=== PATIENT | female | born 1945 | race Caucasian/White ===

== ENCOUNTER 2018-09-16 10:51 | Emergency (ER) | payer MEDICARE, OTHER ==
[~2018-09-16] VITALS: Ht 160 cm; Wt 50.5 kg
[~2018-09-16 10:51] MED LIST: ASPI-1071 PO; HYDR-4383 PO; HYDR25TA4 PO; LEVO75TA7; PANT-47 PO; ROSU40TA PO; TEMA15CA5 PO; [UNRECOGNIZED DRUG - MIXTURE]
[2018-09-16 11:29] LABS: BASOPHILS # (AUTO) 0.1 X10'3 (0-0.2); BASOPHILS % (AUTO) 1.2 % (0-1); EOSINOPHILS # (AUTO) 0.1 X10'3 (0-0.9); EOSINOPHILS % (AUTO) 1.6 % (0-6); HEMATOCRIT 42.6 % (35.0-45.0); HEMOGLOBIN 14.1 g/dl (12.0-16.0); LYMPHOCYTES # (AUTO) 3.6 X10'3 (1.1-4.8); LYMPHOCYTES % (AUTO) 46.4 % (21-51); MEAN CORPUSCULAR HEMOGLOBIN 29.5 PG (27.0-31.0); MEAN CORPUSCULAR HGB CONC 33.2 g/dL (33.0-36.5); MEAN PLATELET VOLUME 9.3 FL (7.4-10.4); MONOCYTES % (AUTO) 12.1 % (2-12); NEUTROPHILS % (AUTO) 38.7 % (42-75); PLATELET COUNT 327 X10'3 (140-440); RED BLOOD COUNT 4.79 X10'6 (4.20-5.60); RED CELL DISTRIBUTION WIDTH 14.5 % (11.5-14.5); WHITE BLOOD COUNT 7.9 X10'3 (4.5-11.0)
[2018-09-16 11:54] LABS: ALANINE AMINOTRANSFERASE 23 U/L (12-78); ALBUMIN 4.2 G/DL (3.4-5.0); ALBUMIN/GLOBULIN RATIO 1.1 (1.1-1.5); ALKALINE PHOSPHATASE 72 IU/L (46-116); ANION GAP 8 (8-16); ASPARTATE AMINO TRANSFERASE 19 U/L (10-37); BILIRUBIN,TOTAL 0.4 MG/DL (0.1-1.0); BLOOD UREA NITROGEN 8 MG/DL (7-18); BUN/CREATININE RATIO 10.8 (6.6-38.0); CALCIUM 9.3 MG/DL (8.5-10.1); CHLORIDE 100 MMOL/L (99-107); CREATININE 0.74 MG/DL (0.40-0.90); GLUCOSE 97 MG/DL (70-104); POTASSIUM 3.2 MMOL/L (3.5-5.1); SODIUM 137 MMOL/L (135-145); TOTAL CARBON DIOXIDE 29.2 MMOL/L (24-32); TOTAL PROTEIN 7.9 G/DL (6.4-8.2); eGFR 77 ML/MIN
[2018-09-16] MEDS ORDERED: proCHLORperazine 10 MG/2 ml inj IV ONE (12:10)
[2018-09-16] MEDS ORDERED: fentaNYL/PF 50MCG/1 ML 2ML syringe IV ONE (12:10)
[2018-09-16] MEDS ORDERED: normal saline 1000ml 1,000 ML IV ONE (12:10)
[2018-09-16] MEDS ORDERED: ondansetron/PF 4mg/2ml inj IV ONE (12:10)
[2018-09-16 12:38] LABS: CLARITY,URINE SLIGHTLY CLOUDY (Clear); COLOR,URINE YELLOW (Yellow); GLUCOSE, URINE NEGATIVE (Neg); KETONES,URINE NEGATIVE (Neg); LEUKOCYTE ESTERASE ,URINE MODERATE (Neg); NITRITES, URINE NEGATIVE (Neg); OCCULT BLOOD,URINE NEGATIVE (Neg); PROTEIN,URINE NEGATIVE (Neg); UROBILINOGEN,URINE 0.2 E.U/dL (0.2-1.0)
[2018-09-16 12:40] LABS: UA COLLECTION TYPE CLN CATCH MIDSTREAM
[2018-09-16 12:45] LABS: TRIPLE PHOSPHATE CRYST 1+ /HPF (NEGATIVE)
[2018-09-16 12:52] LABS: AMORPHOUS PHOSPHATES 1+; SQUAMOUS EPITHELIAL CELL,UR FEW /LPF (FEW); WBC CLUMPS,URINE FEW /HPF (NEGATIVE); WBC,URINE 50-100 /HPF (0-4)
[2018-09-16 12:53] LABS: BACTERIA,URINE 1+ /HPF (Neg)
[2018-09-16 12:54] LABS: RBC,URINE 0-2 /HPF (0-2)
[2018-09-16] MEDS ORDERED: CIPR-230 PO (13:09)
[2018-09-16] MEDS ORDERED: CefTRIAXone/D5W-Rocephin 1gm 50 ML IV ONE (13:10)
[2018-09-16] MEDS ORDERED: famotidine/PF 10 mg/ml inj IV ONE (13:15)
[2018-09-16] MEDS ORDERED: NITR100C6 PO (15:16)
[2018-09-16] MEDS ORDERED: PROC5TAB56 PO (15:17)
[2018-09-16 15:26] VITALS: BP 125/67
== END 2018-09-16 15:14 | disposition home or self-care (01) ==
LOC: ER 10:52
DX: N39.0 Urinary tract infection, site not specified (principal); R10.84 Generalized abdominal pain; R11.10 Vomiting, unspecified; I10 Essential (primary) hypertension; Z98.890 Other specified postprocedural states; Z90.49 Acquired absence of other specified parts of digestive tract; Z90.710 Acquired absence of both cervix and uterus; Z88.5 Allergy status to narcotic agent; Z79.82 Long term (current) use of aspirin; Z79.899 Other long term (current) drug therapy
CPT/HCPCS: 36415; 74176; 80053; 81001; 83605; 84484; 85025; 85610; 87088; 93005; 96365; 96366; 96375; 99284; J0696; J0780; J2405; J3010; J3490; J7030

== ENCOUNTER 2019-01-22 18:13 | Inpatient (IN) | payer MEDICARE, OTHER ==
[~2019-01-22] VITALS: Ht 160 cm; Wt 50.5 kg
[~2019-01-22 18:13] MED LIST changes: +NITR100C6 PO; +PROC5TAB56 PO
[2019-01-22] MEDS ORDERED: morphine 4 MG/ML inj SYRINge IV ONE ×2 (18:45→19:40)
[2019-01-22] MEDS ORDERED: normal saline 1000ml 1,000 ML IV ONE (18:45)
[2019-01-22] MEDS ORDERED: ondansetron/PF 4mg/2ml inj IV ONE (18:45)
[2019-01-22 19:09] LABS: BASOPHILS # (AUTO) 0.2 X10'3 (0-0.2); BASOPHILS % (AUTO) 1.2 % (0-1); EOSINOPHILS # (AUTO) 0.1 X10'3 (0-0.9); EOSINOPHILS % (AUTO) 0.6 % (0-6); HEMATOCRIT 42.1 % (35.0-45.0); HEMOGLOBIN 14.2 g/dl (12.0-16.0); LYMPHOCYTES # (AUTO) 4.8 X10'3 (1.1-4.8); LYMPHOCYTES % (AUTO) 34.1 % (21-51); MEAN CORPUSCULAR HEMOGLOBIN 29.5 PG (27.0-31.0); MEAN CORPUSCULAR HGB CONC 33.8 g/dL (33.0-36.5); MEAN CORPUSCULAR VOLUME 87.2 FL (78-98); MEAN PLATELET VOLUME 9.5 FL (7.4-10.4); MONOCYTES # (AUTO) 1.1 X10'3 (0-0.9); MONOCYTES % (AUTO) 7.8 % (2-12); NEUTROPHILS % (AUTO) 56.3 % (42-75); PLATELET COUNT 332 X10'3 (140-440); RED BLOOD COUNT 4.83 X10'6 (4.20-5.60); RED CELL DISTRIBUTION WIDTH 14.5 % (11.5-14.5); WHITE BLOOD COUNT 14.1 X10'3 (4.5-11.0)
[2019-01-22 19:20] LABS: ALANINE AMINOTRANSFERASE 21 U/L (12-78); ALBUMIN 4.3 G/DL (3.4-5.0); ALBUMIN/GLOBULIN RATIO 1.1 (1.1-1.5); ALKALINE PHOSPHATASE 83 IU/L (46-116); ANION GAP 11 (8-16); ASPARTATE AMINO TRANSFERASE 20 U/L (10-37); BILIRUBIN,TOTAL 0.2 MG/DL (0.1-1.0); BLOOD UREA NITROGEN 14 MG/DL (7-18); BUN/CREATININE RATIO 15.6 (6.6-38.0); CALCIUM 9.7 MG/DL (8.5-10.1); CHLORIDE 102 MMOL/L (99-107); GLUCOSE 114 MG/DL (70-104); LIPASE 136 U/L (73-393); POTASSIUM 3.6 MMOL/L (3.5-5.1); SODIUM 142 MMOL/L (135-145); TOTAL CARBON DIOXIDE 28.7 MMOL/L (24-32); TOTAL PROTEIN 8.1 G/DL (6.4-8.2); eGFR 62 ML/MIN
[2019-01-22] MEDS ORDERED: proCHLORperazine 10 MG/2 ml inj IV ONE (19:25)
[2019-01-22] MEDS ORDERED: MIDAZolam 5mg/ml 2ml vial IV ONE (20:20)
[2019-01-22] MEDS ORDERED: mag hydrox/Alum hydrox/simeth 30ml oral suspension PO PRN (20:45)
[2019-01-22] MEDS ORDERED: magnesium 4gm in 100ml NS 100 ML IV PRN (20:45)
[2019-01-22] MEDS ORDERED: morphine 2 MG/ML inj. syringe IV PRN ×2 (20:45)
[2019-01-22] MEDS ORDERED: acetaminophen 325mg tablet PO PRN ×2 (20:45)
[2019-01-22] MEDS ORDERED: magnesium hydroxide 30ml (MOM) UD suspension PO PRN (20:45)
[2019-01-22] MEDS ORDERED: magnesium Cl slow-release 64mg tablet PO PRN (20:45)
[2019-01-22] MEDS ORDERED: potassium Cl 20 mEq SR tablet PO PRN ×2 (20:45)
[2019-01-22] MEDS ORDERED: magnesium 2GM in 50ml NS 50 ML IV PRN (20:45)
[2019-01-22] MEDS ORDERED: potassium CL 10mEq/100ml bag 100 ML IV PRN (20:45)
[2019-01-22 20:58] LABS: CLARITY,URINE CLEAR (Clear); COLOR,URINE YELLOW (Yellow); GLUCOSE, URINE NEGATIVE (Neg); KETONES,URINE NEGATIVE (Neg); LEUKOCYTE ESTERASE ,URINE SMALL (Neg); NITRITES, URINE NEGATIVE (Neg); OCCULT BLOOD,URINE NEGATIVE (Neg); PH,URINE 8.5 (4.8-8.0); PROTEIN,URINE NEGATIVE (Neg); UROBILINOGEN,URINE 0.2 E.U/dL (0.2-1.0)
[2019-01-22 21:08] LABS: UA COLLECTION TYPE CLN CATCH MIDSTREAM
[2019-01-22 21:09] LABS: WBC,URINE 0-4 /HPF (0-4)
[2019-01-22 21:10] LABS: BACTERIA,URINE NONE SEEN /HPF (Neg); RBC,URINE NONE SEEN /HPF (0-2); SQUAMOUS EPITHELIAL CELL,UR FEW /LPF (FEW)
--- NOTE | 2019-01-22 21:12 | NUR ---
Patient in room ED 11. I have received report from ED RN and had the opportunity to ask questions and will assume patient care when pt arrives to unit
[2019-01-22] MEDS: normal saline 1000ml 1,000 ML IV SCH (21:16)
--- NOTE | 2019-01-22 21:20 | NUR ---
Pt brought up by ED via wheelchair. Pt was able to ambulate to her bed. VSS
[2019-01-22 21:30] VITALS: BP 125/59
[2019-01-22] MEDS: ondansetron/PF 4mg/2ml inj IV PRN (22:43)
[2019-01-23] VITALS (17 sets, daily range): BP systolic 105–153; BP diastolic 50–76
[2019-01-23] MEDS ORDERED: hydrALAZINE 20mg/ml inj. IV PRN (01:55)
[2019-01-23] MEDS: ondansetron/PF 4mg/2ml inj IV PRN ×2 (04:40→15:26)
[2019-01-23] MEDS: normal saline 1000ml 1,000 ML IV SCH ×2 (04:44→17:09)
[2019-01-23 06:05] LABS: ALBUMIN 3.2 G/DL (3.4-5.0); ANION GAP 7 (8-16); BLOOD UREA NITROGEN 10 MG/DL (7-18); BUN/CREATININE RATIO 18.5 (6.6-38.0); CALCIUM 8.3 MG/DL (8.5-10.1); CHLORIDE 107 MMOL/L (99-107); CREATININE 0.54 MG/DL (0.40-0.90); GLUCOSE 117 MG/DL (70-104); MAGNESIUM 1.8 MG/DL (1.5-2.4); SODIUM 143 MMOL/L (135-145); TOTAL CARBON DIOXIDE 29.2 MMOL/L (24-32); eGFR > 90 ML/MIN
[2019-01-23 06:20] LABS: BASOPHILS # (AUTO) 0.1 X10'3 (0-0.2); BASOPHILS % (AUTO) 0.4 % (0-1); EOSINOPHILS % (AUTO) 0.1 % (0-6); HEMATOCRIT 36.5 % (35.0-45.0); HEMOGLOBIN 12.1 g/dl (12.0-16.0); LYMPHOCYTES # (AUTO) 1.4 X10'3 (1.1-4.8); LYMPHOCYTES % (AUTO) 9.4 % (21-51); MEAN CORPUSCULAR HEMOGLOBIN 29.7 PG (27.0-31.0); MEAN CORPUSCULAR HGB CONC 33.2 g/dL (33.0-36.5); MEAN CORPUSCULAR VOLUME 89.5 FL (78-98); MEAN PLATELET VOLUME 9.7 FL (7.4-10.4); MONOCYTES % (AUTO) 6.5 % (2-12); NEUTROPHILS # (AUTO) 12.2 X10'3 (1.8-7.7); NEUTROPHILS % (AUTO) 83.6 % (42-75); PLATELET COUNT 272 X10'3 (140-440); RED BLOOD COUNT 4.07 X10'6 (4.20-5.60); RED CELL DISTRIBUTION WIDTH 14.5 % (11.5-14.5); WHITE BLOOD COUNT 14.6 X10'3 (4.5-11.0)
--- NOTE | 2019-01-23 06:22 | NUR ---
Problems reprioritized. Patient report given, questions answered & plan of care reviewed with KENIA Knox.
--- NOTE | 2019-01-23 06:40 | NUR ---
SHIFT CHANGE NOTE: Patient in room [facility]. I have received report from KENIA GODOY and had the opportunity to ask questions and assume patient care.
[2019-01-23] MEDS ORDERED: levoTHYROXINE sod inj. 100mcg/5 ml vial IM SCH (08:00)
[2019-01-23] MEDS: K and/or MAG REPLACEMENT MC SCH (08:00)
--- NOTE | 2019-01-23 08:20 | NUR ---
PT'S SYNTHROID IS LISTED IM ON THE EMAR BUT THE INSTRUCTIONS ON THE EMAR ARE FOR IV ADMIN. CALLED PHARMACY TO HAVE THEM ADJUST GLASS INSTALLER TECHNICIAN TO IV NOT IM AND PUSHED MED
[2019-01-23] MEDS: pantoprazole 40 MG vial IV SCH ×2 (08:23→20:14)
[2019-01-23] MEDS: levoTHYROXINE sod inj. 100mcg/5 ml vial IV SCH (08:27)
[2019-01-23] MEDS: potassium CL 10mEq/100ml bag 100 ML IV PRN (09:29)
[2019-01-23] MEDS ORDERED: ringers solution, lacted 1,000 ML IV SCH (09:34)
[2019-01-23] MEDS ORDERED: ondansetron/PF 4mg/2ml inj IV PRN (09:35)
[2019-01-23] MEDS ORDERED: morphine 4 MG/ML inj SYRINge IV PRN ×2 (09:35)
[2019-01-23] MEDS ORDERED: meperidine/PF 25mg/ml syringe IV PRN ×3 (09:35)
[2019-01-23] MEDS ORDERED: proCHLORperazine 10 MG/2 ml inj IV PRN (09:35)
[2019-01-23] MEDS ORDERED: ceFAZolin 1GM/D5W- ADD-VANTAGE 50 ML IV ONE (10:00)
--- NOTE | 2019-01-23 10:23 | NUR ---
Malnutrition consult: Pt reports wt loss with decreased appetite. Patient's current scaled wt is stable with scaled wt hx, documented at 51 kg 07/27/17 using standing scale and 50.45 kg 09/16/18 using a chair scale; current documented wt is 52 kg using a chair scale. Pt currently NPO with an NG tube admit with possible SBO, likely impacting appetite however likely that appetite will resume once SBO is resolved. Pt with no decrease in muscle strength or significant edema. Pt currently does not meet criteria for malnutrition. Will continue to follow. Addendum: 01/23/19 at [address] Amended: Links added.
--- NOTE | 2019-01-23 11:27 | NUR ---
REPORT GIVEN TO GARY IN OR
[2019-01-23] MEDS ORDERED: sevoflurane 250ml liquid IH ONE (12:29)
[2019-01-23] MEDS ORDERED: dexamethasone sod phosphate 10mg/ml inj ONE (12:29)
[2019-01-23] MEDS ORDERED: LIDOcaine 1% (10mg/ml) 2ml vial ONE (12:29)
[2019-01-23] MEDS ORDERED: etomidate 2mg/ml inj. ONE (12:29)
[2019-01-23] MEDS ORDERED: fentaNYL/PF 50MCG/1 ML 2ML syringe ONE ×2 (12:33→13:36)
[2019-01-23] MEDS ORDERED: midazolam 2 mg/2 ml injection ONE (12:34)
[2019-01-23] MEDS ORDERED: rocuronium 10mg/ml inj IV ONE (12:39)
[2019-01-23] MEDS ORDERED: ondansetron/PF 4mg/2ml inj ONE (12:44)
[2019-01-23] MEDS ORDERED: BUPIVAcaine/PF 2.5 mg/ml (0.25%) 30ml vial IJ ONE (13:00)
[2019-01-23] MEDS ORDERED: LIDOcaine 1% w/EPI 1:100,000 30ml vial (MDV) IJ ONE (13:00)
[2019-01-23] MEDS ORDERED: acetaminophen 1,000mg/100ml IV 100 ML IV ONE (13:04)
[2019-01-23] MEDS ORDERED: CADD PCA waste documentation MC PRN (15:00)
[2019-01-23] MEDS ORDERED: naloxone 0.4 mg/ml inj IV PRN (15:00)
--- NOTE | 2019-01-23 15:10 | NUR ---
Received from OR via BED, accompanied by Anesthesiologist LALO and report given by Anesthesiolgist. PT DROWSY, OXYGENATING WELL ON 10 LPM 2 VIA MASK, NO RESP DISTRESS NOTED. PT C/O NAUSEA AND INCISIONAL PAIN 8 ON THE PAIN SCALE. MEDICATED WITH IV ZOFRAN AND DEMEROL, SEE EMAR. NGT TO R NARE, CONNECTED TO LIWS. SMALL AMOLUNT OF BROWNISH OUTPUT IN TUBE. ISLAND DSG TO AND MIDLINE, CDI. FC PATENT SCDS ON. VSS.
--- NOTE | 2019-01-23 15:56 | NUR ---
REPORT RECEIVED BY DANIELE FROM REC[facility]
--- NOTE | 2019-01-23 16:10 | NUR ---
Report called to receiving nurse. Transferred via BED Belongings IN PT ROOM. PT PAIN LEVEL SLOWLY TRENDING DOWN, MORPHINE CADD ORDERED. VSS. NO FURTHER ISSUE WITH NAUSEA DURING PACU STAY. TRANSFERRED BACK TO SURGICAL FLOOR IN STABLE CONDITION. Special Issues communicated to receiving nurse.
[2019-01-23] MEDS: morphine/NS 5 mg/ml CADD 50 ML IV SCH ×5 (17:00→23:00)
--- NOTE | 2019-01-23 18:45 | NUR ---
SHIFT CHANGE NOTE Problems reprioritized. Patient report given, questions answered & plan of care reviewed with KENIA EDWARDS.
[2019-01-23] MEDS ORDERED: temazepam 15mg capsule PO SCH (21:00)
[2019-01-24] VITALS: BP 121/58
[2019-01-24] MEDS: morphine/NS 5 mg/ml CADD 50 ML IV SCH ×12 (01:00→23:00)
[2019-01-24] MEDS: normal saline 1000ml 1,000 ML IV SCH ×2 (02:45→08:51)
--- NOTE | 2019-01-24 06:12 | NUR ---
SHIFT CHANGE NOTE: Patient in room [facility]. I have received report from KENIA EDWARDS and had the opportunity to ask questions and assume patient care.
--- NOTE | 2019-01-24 06:22 | NUR ---
shift given to Mckayla Knox
[2019-01-24 06:28] LABS: ALBUMIN 2.8 G/DL (3.4-5.0); ANION GAP 8 (8-16); BLOOD UREA NITROGEN 6 MG/DL (7-18); BUN/CREATININE RATIO 12.8 (6.6-38.0); CALCIUM 7.7 MG/DL (8.5-10.1); CHLORIDE 106 MMOL/L (99-107); CREATININE 0.47 MG/DL (0.40-0.90); GLUCOSE 110 MG/DL (70-104); MAGNESIUM 1.6 MG/DL (1.5-2.4); POTASSIUM 3.1 MMOL/L (3.5-5.1); SODIUM 142 MMOL/L (135-145); TOTAL CARBON DIOXIDE 27.6 MMOL/L (24-32); eGFR > 90 ML/MIN
[2019-01-24 06:29] LABS: BASOPHILS % (AUTO) 0.1 % (0-1); EOSINOPHILS % (AUTO) 0 % (0-6); HEMATOCRIT 36.5 % (35.0-45.0); HEMOGLOBIN 12.2 g/dl (12.0-16.0); LYMPHOCYTES # (AUTO) 1.5 X10'3 (1.1-4.8); LYMPHOCYTES % (AUTO) 13.6 % (21-51); MEAN CORPUSCULAR HEMOGLOBIN 30.1 PG (27.0-31.0); MEAN CORPUSCULAR HGB CONC 33.4 g/dL (33.0-36.5); MEAN CORPUSCULAR VOLUME 90.2 FL (78-98); MEAN PLATELET VOLUME 9.3 FL (7.4-10.4); MONOCYTES % (AUTO) 8.5 % (2-12); NEUTROPHILS # (AUTO) 8.8 X10'3 (1.8-7.7); NEUTROPHILS % (AUTO) 77.8 % (42-75); PLATELET COUNT 253 X10'3 (140-440); RED BLOOD COUNT 4.04 X10'6 (4.20-5.60); RED CELL DISTRIBUTION WIDTH 15.2 % (11.5-14.5); WHITE BLOOD COUNT 11.4 X10'3 (4.5-11.0)
[2019-01-24 07:15] VITALS: BP 120/57
[2019-01-24] MEDS: K and/or MAG REPLACEMENT MC SCH (08:00)
[2019-01-24] MEDS: levoTHYROXINE sod inj. 100mcg/5 ml vial IV SCH (08:19)
[2019-01-24] MEDS: pantoprazole 40 MG vial IV SCH ×2 (08:19→19:06)
[2019-01-24] MEDS: enoxaparin 30mg/0.3ml syringe SQ SCH (08:21)
[2019-01-24] MEDS: potassium CL 10mEq/100ml bag 100 ML IV PRN ×4 (08:43→15:08)
[2019-01-24 11:00] VITALS: BP 117/57
[2019-01-24] MEDS: ondansetron/PF 4mg/2ml inj IV PRN (12:32)
[2019-01-24 18:00] VITALS: BP 132/65
--- NOTE | 2019-01-24 18:59 | NUR ---
NG WAS FLUSHED WITH 30 ML OF WATER FOR TOTAL OUTPUT OF 100ML Addendum: 01/24/19 at 1902 by Lisette Srinivasan RN Amended: Links added.
[2019-01-25] VITALS: BP 134/57
[2019-01-25] MEDS: morphine/NS 5 mg/ml CADD 50 ML IV SCH ×12 (01:00→23:00)
[2019-01-25 05:36] LABS: BASOPHILS # (AUTO) 0.1 X10'3 (0-0.2); BASOPHILS % (AUTO) 0.6 % (0-1); EOSINOPHILS # (AUTO) 0.1 X10'3 (0-0.9); EOSINOPHILS % (AUTO) 0.5 % (0-6); HEMATOCRIT 33.1 % (35.0-45.0); LYMPHOCYTES # (AUTO) 1.2 X10'3 (1.1-4.8); LYMPHOCYTES % (AUTO) 10.1 % (21-51); MEAN CORPUSCULAR HEMOGLOBIN 29.8 PG (27.0-31.0); MEAN CORPUSCULAR HGB CONC 33.2 g/dL (33.0-36.5); MEAN CORPUSCULAR VOLUME 89.8 FL (78-98); MONOCYTES # (AUTO) 1.1 X10'3 (0-0.9); MONOCYTES % (AUTO) 8.8 % (2-12); NEUTROPHILS # (AUTO) 9.5 X10'3 (1.8-7.7); PLATELET COUNT 217 X10'3 (140-440); RED BLOOD COUNT 3.68 X10'6 (4.20-5.60); WHITE BLOOD COUNT 11.9 X10'3 (4.5-11.0)
[2019-01-25 06:05] LABS: ALBUMIN 2.5 G/DL (3.4-5.0); ANION GAP 6 (8-16); BLOOD UREA NITROGEN 5 MG/DL (7-18); BUN/CREATININE RATIO 11.6 (6.6-38.0); CALCIUM 8.1 MG/DL (8.5-10.1); CHLORIDE 107 MMOL/L (99-107); CREATININE 0.43 MG/DL (0.40-0.90); GLUCOSE 93 MG/DL (70-104); MAGNESIUM 1.5 MG/DL (1.5-2.4); POTASSIUM 3.2 MMOL/L (3.5-5.1); SODIUM 142 MMOL/L (135-145); TOTAL CARBON DIOXIDE 29.3 MMOL/L (24-32); eGFR > 90 ML/MIN
--- NOTE | 2019-01-25 06:16 | NUR ---
Report given to KENIA Calvert
--- NOTE | 2019-01-25 06:16 | NUR ---
Patient in room [facility]. I have received report from KENIA Morfin and had the opportunity to ask questions and assume patient care.
[2019-01-25 07:00] VITALS: BP 127/57
[2019-01-25] MEDS: K and/or MAG REPLACEMENT MC SCH (08:00)
[2019-01-25] MEDS: pantoprazole 40 MG vial IV SCH ×2 (08:21→19:35)
[2019-01-25] MEDS: normal saline 1000ml 1,000 ML IV SCH ×2 (08:27→18:55)
[2019-01-25] MEDS: levoTHYROXINE sod inj. 100mcg/5 ml vial IV SCH (08:34)
[2019-01-25] MEDS: potassium CL 10mEq/100ml bag 100 ML IV PRN ×4 (08:37→14:13)
[2019-01-25] MEDS: enoxaparin 30mg/0.3ml syringe SQ SCH (08:37)
[2019-01-25 11:00] VITALS: BP 136/71
[2019-01-25] MEDS: ondansetron/PF 4mg/2ml inj IV PRN ×2 (14:16→19:35)
--- NOTE | 2019-01-25 14:30 | NUR ---
TPN consult: Pt s/p ex lap with lysis of adhesions and hernia repair. Pt is anticipated to have prolonged return of bowel functions due to extensive intra-abdominal surgery per MD notes, TPN is appropriate at this time. Per RN pt currently not with a PICC line however to be placed later this afternoon. TPN recommendations d/w pharmacy. Pt with active unlisted diet allowing ice chips and sips however per RN pt not tolerating that very well. Pt with NG tube in place for suctioning per physical assessment. [facility] 01/22. Will continue to follow closely. Recommendations: 1) Continuous 07/20 Clinimix-E at 50 mL/hr to provide: 1200 mL total volume/day, 60 g AA, and 240 g dextrose with dextrose load 3.21 g/kg/min 2) Piggy back 240 mL 20% intralipids at 20 mL/hr for 12 hrs/day to provide: 48 g lipid 3) In total, TPN with lipids to provide: 1296 non-protein kcal and 1536 total kcal 4) Prealbumin and TG q / 5) Daily weights 6) PO diet advancement to low fiber/low residue as medically indicated Addendum: 01/25/19 at [address] Amended: Links added.
--- NOTE | 2019-01-25 18:10 | NUR ---
Problems reprioritized. Patient report given, questions answered & plan of care reviewed with KENIA Stroud.
[2019-01-25 18:30] VITALS: BP 132/56
[2019-01-25 19:50] VITALS: BP 132/56
[2019-01-25] MEDS: fat emulsion IV bag 250 ML IV SCH (21:00)
[2019-01-25] MEDS: DEXT IV SCH (21:00)
[2019-01-25] MEDS: CALCIUM IV SCH (21:00)
[2019-01-25] MEDS: LYTES IV SCH (21:00)
[2019-01-25] MEDS: TRACE ELEMENT IV SCH (21:00)
[2019-01-25] MEDS: [UNRECOGNIZED DRUG - OTHER] IV SCH (21:00)
[2019-01-25 21:18] LABS: ALANINE AMINOTRANSFERASE 12 U/L (12-78); ALBUMIN 2.4 G/DL (3.4-5.0); ALBUMIN/GLOBULIN RATIO 0.7 (1.1-1.5); ALKALINE PHOSPHATASE 54 IU/L (46-116); ANION GAP 8 (8-16); ASPARTATE AMINO TRANSFERASE 17 U/L (10-37); BILIRUBIN,TOTAL 0.6 MG/DL (0.1-1.0); BLOOD UREA NITROGEN 6 MG/DL (7-18); CALCIUM 8.3 MG/DL (8.5-10.1); CHLORIDE 106 MMOL/L (99-107); CREATININE 0.43 MG/DL (0.40-0.90); GLUCOSE 96 MG/DL (70-104); MAGNESIUM 1.4 MG/DL (1.5-2.4); PHOSPHORUS 1.6 MG/DL (2.3-4.5); POTASSIUM 3.6 MMOL/L (3.5-5.1); PREALBUMIN 11.3 MG/DL (19-36); SODIUM 143 MMOL/L (135-145); TOTAL CARBON DIOXIDE 29.3 MMOL/L (24-32); TOTAL PROTEIN 5.7 G/DL (6.4-8.2); TRIGLYCERIDES 73 MG/DL (20-135); eGFR > 90 ML/MIN
[2019-01-26] VITALS: BP 128/51
[2019-01-26] MEDS: morphine/NS 5 mg/ml CADD 50 ML IV SCH ×12 (01:00→23:00)
[2019-01-26 05:01] LABS: BASOPHILS % (AUTO) 0.3 % (0-1); EOSINOPHILS # (AUTO) 0.1 X10'3 (0-0.9); EOSINOPHILS % (AUTO) 0.8 % (0-6); HEMATOCRIT 28.8 % (35.0-45.0); HEMOGLOBIN 9.7 g/dl (12.0-16.0); LYMPHOCYTES # (AUTO) 0.8 X10'3 (1.1-4.8); LYMPHOCYTES % (AUTO) 9.1 % (21-51); MEAN CORPUSCULAR HEMOGLOBIN 30.2 PG (27.0-31.0); MEAN CORPUSCULAR HGB CONC 33.8 g/dL (33.0-36.5); MEAN CORPUSCULAR VOLUME 89.2 FL (78-98); MEAN PLATELET VOLUME 9.2 FL (7.4-10.4); MONOCYTES # (AUTO) 0.8 X10'3 (0-0.9); MONOCYTES % (AUTO) 9.3 % (2-12); NEUTROPHILS # (AUTO) 6.9 X10'3 (1.8-7.7); NEUTROPHILS % (AUTO) 80.5 % (42-75); PLATELET COUNT 196 X10'3 (140-440); RED BLOOD COUNT 3.22 X10'6 (4.20-5.60); RED CELL DISTRIBUTION WIDTH 14.8 % (11.5-14.5); WHITE BLOOD COUNT 8.6 X10'3 (4.5-11.0)
[2019-01-26 05:38] LABS: ALANINE AMINOTRANSFERASE 13 U/L (12-78); ALBUMIN 2.3 G/DL (3.4-5.0); ALBUMIN/GLOBULIN RATIO 0.7 (1.1-1.5); ALKALINE PHOSPHATASE 50 IU/L (46-116); ANION GAP 6 (8-16); ASPARTATE AMINO TRANSFERASE 15 U/L (10-37); BILIRUBIN,TOTAL 0.4 MG/DL (0.1-1.0); BLOOD UREA NITROGEN 6 MG/DL (7-18); BUN/CREATININE RATIO 14.6 (6.6-38.0); CALCIUM 8.2 MG/DL (8.5-10.1); CHLORIDE 107 MMOL/L (99-107); CREATININE 0.41 MG/DL (0.40-0.90); GLUCOSE 153 MG/DL (70-104); MAGNESIUM 1.5 MG/DL (1.5-2.4); POTASSIUM 3.2 MMOL/L (3.5-5.1); SODIUM 144 MMOL/L (135-145); TOTAL CARBON DIOXIDE 30.7 MMOL/L (24-32); TOTAL PROTEIN 5.7 G/DL (6.4-8.2); eGFR > 90 ML/MIN
[2019-01-26 06:16] LABS: PHOSPHORUS 1.1 MG/DL (2.3-4.5)
[2019-01-26] MEDS ORDERED: potassium phosphate inj 15 MMOL in normal saline 250ml IV soln 245 ML IV ONE (06:20)
--- NOTE | 2019-01-26 06:26 | NUR ---
CALLED DR MG FOR A CRITICAL PHOS OF 1.1 HE ORDERED K-PHOS 20MEQ IV. NOT AVAILABLE IN THAT DOSAGE. CALLED PHARMACY, THEY STATE USE POTASSIUM PHOSPHATE INJ 15MMOL SUBSTITUTE.
[2019-01-26 07:00] VITALS: BP 152/56
[2019-01-26] MEDS: enoxaparin 30mg/0.3ml syringe SQ SCH (07:33)
[2019-01-26] MEDS: pantoprazole 40 MG vial IV SCH ×2 (07:33→21:35)
[2019-01-26] MEDS: levoTHYROXINE sod inj. 100mcg/5 ml vial IV SCH (07:33)
[2019-01-26] MEDS: MVI, adult No.4 with vit. K 10 ML in dextrose 5% water 500ml 500 ML IV SCH ×2 (07:33)
[2019-01-26] MEDS: ondansetron/PF 4mg/2ml inj IV PRN (08:00)
[2019-01-26] MEDS: K and/or MAG REPLACEMENT MC SCH (08:00)
[2019-01-26 11:00] VITALS: BP 143/57
[2019-01-26] MEDS ORDERED: magnesium Cl slow-release 64mg tablet PO PRN (13:10)
[2019-01-26] MEDS ORDERED: magnesium 4gm in 100ml NS 100 ML IV PRN (13:10)
[2019-01-26] MEDS ORDERED: potassium Cl 20 mEq SR tablet PO PRN ×2 (13:10)
[2019-01-26] MEDS: potassium CL 10mEq/100ml bag 100 ML IV PRN ×4 (13:21→19:27)
[2019-01-26] MEDS: normal saline 1000ml 1,000 ML IV SCH (13:23)
--- NOTE | 2019-01-26 18:42 | NUR ---
Problems reprioritized. Patient report given, questions answered & plan of care reviewed with KENIA Turner.
--- NOTE | 2019-01-26 18:42 | NUR ---
Patient in room [facility]. I have received report from KENIA Calvert and had the opportunity to ask questions and assume patient care.
[2019-01-26] MEDS ORDERED: acetaminophen 650mg rectal suppository RC PRN (20:05)
[2019-01-26] MEDS: DEXT IV SCH (21:45)
[2019-01-26] MEDS: LYTES IV SCH (21:45)
[2019-01-26] MEDS: [UNRECOGNIZED DRUG - OTHER] IV SCH (21:45)
[2019-01-26] MEDS: TRACE ELEMENT IV SCH (21:45)
[2019-01-26] MEDS: CALCIUM IV SCH (21:45)
[2019-01-26] MEDS: fat emulsion IV bag 250 ML IV SCH (21:55)
[2019-01-27] VITALS: BP 150/66
[2019-01-27] MEDS: morphine/NS 5 mg/ml CADD 50 ML IV SCH ×6 (01:00→11:00)
[2019-01-27 01:36] VITALS: BP 159/77
[2019-01-27] MEDS: HYDROcodone/acetaminophen 5mg/325mg tablet PO PRN ×2 (03:01→22:08)
[2019-01-27 04:32] LABS: BASOPHILS % (AUTO) 0.4 % (0-1); EOSINOPHILS # (AUTO) 0.2 X10'3 (0-0.9); EOSINOPHILS % (AUTO) 2.5 % (0-6); HEMATOCRIT 28.7 % (35.0-45.0); HEMOGLOBIN 9.8 g/dl (12.0-16.0); LYMPHOCYTES # (AUTO) 1.3 X10'3 (1.1-4.8); LYMPHOCYTES % (AUTO) 15.9 % (21-51); MEAN CORPUSCULAR HEMOGLOBIN 30.4 PG (27.0-31.0); MEAN CORPUSCULAR HGB CONC 34.1 g/dL (33.0-36.5); MEAN CORPUSCULAR VOLUME 89.2 FL (78-98); MEAN PLATELET VOLUME 9.6 FL (7.4-10.4); MONOCYTES % (AUTO) 11.5 % (2-12); NEUTROPHILS # (AUTO) 5.8 X10'3 (1.8-7.7); NEUTROPHILS % (AUTO) 69.7 % (42-75); PLATELET COUNT 200 X10'3 (140-440); RED BLOOD COUNT 3.22 X10'6 (4.20-5.60); RED CELL DISTRIBUTION WIDTH 14.2 % (11.5-14.5); WHITE BLOOD COUNT 8.3 X10'3 (4.5-11.0)
[2019-01-27 04:45] LABS: ALANINE AMINOTRANSFERASE 9 U/L (12-78); ALBUMIN 2.1 G/DL (3.4-5.0); ALBUMIN/GLOBULIN RATIO 0.7 (1.1-1.5); ALKALINE PHOSPHATASE 56 IU/L (46-116); ANION GAP 2 (8-16); ASPARTATE AMINO TRANSFERASE 15 U/L (10-37); BILIRUBIN,TOTAL 0.5 MG/DL (0.1-1.0); BLOOD UREA NITROGEN 5 MG/DL (7-18); CALCIUM 8.4 MG/DL (8.5-10.1); CHLORIDE 104 MMOL/L (99-107); GLUCOSE 121 MG/DL (70-104); MAGNESIUM 1.3 MG/DL (1.5-2.4); SODIUM 143 MMOL/L (135-145); TOTAL CARBON DIOXIDE 37.2 MMOL/L (24-32); TOTAL PROTEIN 5.3 G/DL (6.4-8.2); eGFR > 90 ML/MIN
[2019-01-27 04:48] LABS: PHOSPHORUS 1.2 MG/DL (2.3-4.5); POTASSIUM 2.8 MMOL/L (3.5-5.1)
[2019-01-27] MEDS ORDERED: potassium phosphate inj 15 MMOL in normal saline 250ml IV soln 250 ML IV ONE (05:10)
[2019-01-27] MEDS: potassium CL 10mEq/100ml bag 100 ML IV PRN ×8 (05:19→17:15)
[2019-01-27] MEDS: LYTES IV SCH ×2 (06:14→21:00)
[2019-01-27] MEDS: TRACE ELEMENT IV SCH ×2 (06:14→21:00)
[2019-01-27] MEDS: [UNRECOGNIZED DRUG - OTHER] IV SCH ×2 (06:14→21:00)
[2019-01-27] MEDS: CALCIUM IV SCH ×2 (06:14→21:00)
[2019-01-27] MEDS: DEXT IV SCH ×2 (06:14→21:00)
--- NOTE | 2019-01-27 06:28 | NUR ---
Problems reprioritized. Patient report given, questions answered & plan of care reviewed with KENIA Calvert.
[2019-01-27 07:00] VITALS: BP 143/64
[2019-01-27] MEDS: K and/or MAG REPLACEMENT MC SCH (08:00)
[2019-01-27] MEDS: MVI, adult No.4 with vit. K 10 ML in dextrose 5% water 500ml 500 ML IV SCH ×2 (08:32)
[2019-01-27] MEDS: pantoprazole 40 MG vial IV SCH ×2 (08:35→21:48)
[2019-01-27] MEDS: levoTHYROXINE sod inj. 100mcg/5 ml vial IV SCH (08:36)
[2019-01-27] MEDS: enoxaparin 30mg/0.3ml syringe SQ SCH (08:36)
--- NOTE | 2019-01-27 11:30 | NUR ---
Dr Blanca rounding on patient aware patient states + gas Primary RN Nehal states patient has + BS. Advised Dr Blanca that patient does not want the Morphine Cadd due to she feels like it is making her confused. Dr Blanca will be puttings in for 1gm Tylenol IV Q6H scheduled and DC Morphine Cadd and Ordering Toradol Prn. Primary RN Nehal aware.
--- NOTE | 2019-01-27 11:46 | NUR ---
Dr Persaud on the floor primary RN on break Dr Persaud aware that patient K+ 2.8 replacing per protocol IV and Mg 1.3 received orders to replace with 6 gm Magnesium
[2019-01-27 12:00] VITALS: BP 140/67
[2019-01-27] MEDS: normal saline 1000ml 1,000 ML IV SCH (12:07)
[2019-01-27] MEDS: ketorolac trometh. 30mg/ml inj. IV PRN ×2 (12:09→21:54)
[2019-01-27] MEDS ORDERED: MAGNESIUM 2 GRAMS IN 50ML BAG IV PRN (12:35)
--- NOTE | 2019-01-27 15:19 | NUR ---
F/u: Pt TPN remains at 30ml/hr. K/Mg/Phos all decreased since PN initiation likely refeeding syndrome. GOPAL collaborated w/ clinical pharmacist who is aware and pt is receiving K/Mg/Phos replacement at this time as well as MVI and lipids. Current DEX loading WNL given pt wt and hx. Will monitor for TPN tolerance tomorrow. Addendum: 01/27/19 at [address] Amended: Links added.
[2019-01-27] MEDS: acetaminophen 1,000mg/100ml IV 100 ML IV SCH ×2 (16:05→21:37)
[2019-01-27] MEDS: Dextrose 10%-water IV solution 1,000 ML IV PRN (18:10)
[2019-01-27 18:30] VITALS: BP 147/75
--- NOTE | 2019-01-27 18:32 | NUR ---
Problems reprioritized. Patient report given, questions answered & plan of care reviewed with KENIA Hunt.
--- NOTE | 2019-01-27 18:38 | NUR ---
Patient in room [facility]. I have received report from Nehal AQUINO and had the opportunity to ask questions and assume patient care.
--- NOTE | 2019-01-27 21:00 | NUR ---
Clinimix administered at 2100. Unable to scan at this time because the e-mar timing was not correct. Message sent to pharmacy, however, not address during noc shift.
[2019-01-27] MEDS: fat emulsion IV bag 250 ML IV SCH ×2 (21:59→22:09)
[2019-01-28] VITALS: BP 144/71
[2019-01-28] MEDS: acetaminophen 1,000mg/100ml IV 100 ML IV SCH ×4 (02:08→22:22)
[2019-01-28 06:35] LABS: ALANINE AMINOTRANSFERASE 10 U/L (12-78); ALBUMIN 2.2 G/DL (3.4-5.0); ALBUMIN/GLOBULIN RATIO 0.6 (1.1-1.5); ALKALINE PHOSPHATASE 58 IU/L (46-116); ANION GAP 4 (8-16); ASPARTATE AMINO TRANSFERASE 13 U/L (10-37); BILIRUBIN,TOTAL 0.4 MG/DL (0.1-1.0); BLOOD UREA NITROGEN 5 MG/DL (7-18); BUN/CREATININE RATIO 10.9 (6.6-38.0); CALCIUM 8.3 MG/DL (8.5-10.1); CHLORIDE 106 MMOL/L (99-107); CREATININE 0.46 MG/DL (0.40-0.90); GLUCOSE 104 MG/DL (70-104); PHOSPHORUS 2.8 MG/DL (2.3-4.5); POTASSIUM 3.2 MMOL/L (3.5-5.1); SODIUM 144 MMOL/L (135-145); TOTAL CARBON DIOXIDE 34.1 MMOL/L (24-32); eGFR > 90 ML/MIN
--- NOTE | 2019-01-28 06:45 | NUR ---
Problems reprioritized. Patient report given, questions answered & plan of care reviewed with Lisette AQUINO.
[2019-01-28 07:00] VITALS: BP 151/73
--- NOTE | 2019-01-28 07:00 | NUR ---
Patient in room [facility]. I have received report from KENIA SANABRIA and had the opportunity to ask questions and assume patient care.
--- NOTE | 2019-01-28 07:41 | NUR ---
Called pharmacist "Jeane" who helped me fix it this AM. During the down time of clinimix yesterday, pt. was receiving D10 at 50cc/hr. Patient remained stable.
[2019-01-28] MEDS: normal saline 1000ml 1,000 ML IV SCH (07:50)
[2019-01-28] MEDS: levoTHYROXINE sod inj. 100mcg/5 ml vial IV SCH (09:25)
[2019-01-28] MEDS: pantoprazole 40 MG vial IV SCH ×2 (09:26→22:12)
[2019-01-28] MEDS: MVI, adult No.4 with vit. K 10 ML in dextrose 5% water 500ml 500 ML IV SCH ×2 (09:26)
[2019-01-28] MEDS: enoxaparin 30mg/0.3ml syringe SQ SCH (09:27)
[2019-01-28 11:00] VITALS: BP 152/86
[2019-01-28] MEDS ORDERED: potassium Cl 40MEQ/NS 500ml 500 ML IV ONE (12:00)
[2019-01-28] MEDS: HYDROcodone/acetaminophen 5mg/325mg tablet PO PRN (14:37)
--- NOTE | 2019-01-28 15:24 | NUR ---
reassessment: Pt electrolytes increased w/ replacement protocol and TPN currently at goal 50ml/hr and tolerating. LBM 01/22; passing small amount of gas post-op per MD note. Will continue to monitor for TPN tolerance at goal. F/u: Pt TPN remains at 30ml/hr. K/Mg/Phos all decreased since PN initiation likely refeeding syndrome. RD collaborated w/ clinical pharmacist who is aware and pt is receiving K/Mg/Phos replacement at this time as well as MVI and lipids. Current DEX loading WNL given pt wt and hx. Will monitor for TPN tolerance tomorrow. Recommendations: 1) Continuous /20 Clinimix-E at 50 mL/hr to provide: 1200 mL total volume/day, 60 g AA, and 240 g dextrose with dextrose load 3.21 g/kg/min 2) Piggy back 240 mL 20% intralipids at 20 mL/hr for 12 hrs/day to provide: 48 g lipid 3) In total, TPN with lipids to provide: 1296 non-protein kcal and 1536 total kcal 4) Prealbumin and TG q / 5) Daily weights 6) PO diet advancement to low fiber/low residue as medically indicated Addendum: 01/28/19 at [address] Amended: Links added.
[2019-01-28] MEDS: DEXT IV SCH ×3 (15:36→16:36)
[2019-01-28] MEDS: [UNRECOGNIZED DRUG - OTHER] IV SCH ×3 (15:36→16:36)
[2019-01-28] MEDS: CALCIUM IV SCH ×3 (15:36→16:36)
[2019-01-28] MEDS: LYTES IV SCH ×3 (15:36→16:36)
[2019-01-28] MEDS: TRACE ELEMENT IV SCH ×3 (15:36→16:36)
[2019-01-28 18:00] VITALS: BP 145/76
[2019-01-28] MEDS: K and/or MAG REPLACEMENT MC SCH (18:00)
--- NOTE | 2019-01-28 18:30 | NUR ---
Problems reprioritized. Patient report given, questions answered & plan of care reviewed with KENIA SANABRIA.
--- NOTE | 2019-01-28 18:30 | NUR ---
Patient in room [facility]. I have received report from Lisette AQUINO and had the opportunity to ask questions and assume patient care.
[2019-01-29] VITALS: BP 147/68
[2019-01-29] MEDS: fat emulsion IV bag 250 ML IV SCH (02:45)
[2019-01-29] MEDS: acetaminophen 1,000mg/100ml IV 100 ML IV SCH ×2 (02:46→09:08)
[2019-01-29 05:26] LABS: ALANINE AMINOTRANSFERASE 10 U/L (12-78); ALBUMIN 2.2 G/DL (3.4-5.0); ALBUMIN/GLOBULIN RATIO 0.6 (1.1-1.5); ALKALINE PHOSPHATASE 56 IU/L (46-116); ANION GAP 8 (8-16); ASPARTATE AMINO TRANSFERASE 14 U/L (10-37); BILIRUBIN,TOTAL 0.3 MG/DL (0.1-1.0); BLOOD UREA NITROGEN 8 MG/DL (7-18); BUN/CREATININE RATIO 16.7 (6.6-38.0); CALCIUM 8.5 MG/DL (8.5-10.1); CHLORIDE 107 MMOL/L (99-107); CREATININE 0.48 MG/DL (0.40-0.90); GLUCOSE 104 MG/DL (70-104); MAGNESIUM 1.5 MG/DL (1.5-2.4); PHOSPHORUS 4.1 MG/DL (2.3-4.5); POTASSIUM 3.6 MMOL/L (3.5-5.1); SODIUM 144 MMOL/L (135-145); TOTAL CARBON DIOXIDE 29.4 MMOL/L (24-32); TOTAL PROTEIN 5.6 G/DL (6.4-8.2); eGFR > 90 ML/MIN
--- NOTE | 2019-01-29 06:10 | NUR ---
Patient in room [facility]. I have received report from KENIA SANABRIA and had the opportunity to ask questions and assume patient care.
--- NOTE | 2019-01-29 06:30 | NUR ---
Problems reprioritized. Patient report given, questions answered & plan of care reviewed with Lisette AQUINO.
[2019-01-29 07:00] VITALS: BP 151/73
[2019-01-29] MEDS: K and/or MAG REPLACEMENT MC SCH (08:00)
[2019-01-29] MEDS: pantoprazole 40 MG vial IV SCH ×2 (09:07→19:55)
[2019-01-29] MEDS: levoTHYROXINE sod inj. 100mcg/5 ml vial IV SCH (09:07)
[2019-01-29] MEDS: enoxaparin 30mg/0.3ml syringe SQ SCH (09:08)
[2019-01-29] MEDS: MVI, adult No.4 with vit. K 10 ML in dextrose 5% water 500ml 500 ML IV SCH ×2 (09:33)
[2019-01-29] MEDS: Dextrose 10%-water IV solution 1,000 ML IV PRN (09:33)
[2019-01-29 11:00] VITALS: BP 155/80
[2019-01-29] MEDS: HYDROcodone/acetaminophen 5mg/325mg tablet PO PRN ×3 (13:01→23:54)
[2019-01-29 18:15] VITALS: BP 151/76
--- NOTE | 2019-01-29 19:12 | NUR ---
Problems reprioritized. Patient report given, questions answered & plan of care reviewed with KENIA Avery.
[2019-01-29] MEDS: normal saline 1000ml 1,000 ML IV SCH (19:56)
[2019-01-30 00:15] VITALS: BP 140/61
[2019-01-30 05:35] LABS: ALANINE AMINOTRANSFERASE 10 U/L (12-78); ALBUMIN 2.3 G/DL (3.4-5.0); ALBUMIN/GLOBULIN RATIO 0.7 (1.1-1.5); ALKALINE PHOSPHATASE 63 IU/L (46-116); ANION GAP 7 (8-16); ASPARTATE AMINO TRANSFERASE 18 U/L (10-37); BILIRUBIN,TOTAL 0.4 MG/DL (0.1-1.0); BLOOD UREA NITROGEN 7 MG/DL (7-18); BUN/CREATININE RATIO 14.9 (6.6-38.0); CALCIUM 8.5 MG/DL (8.5-10.1); CHLORIDE 106 MMOL/L (99-107); CREATININE 0.47 MG/DL (0.40-0.90); GLUCOSE 81 MG/DL (70-104); PHOSPHORUS 4.3 MG/DL (2.3-4.5); POTASSIUM 3.9 MMOL/L (3.5-5.1); SODIUM 142 MMOL/L (135-145); TOTAL CARBON DIOXIDE 29.3 MMOL/L (24-32); TOTAL PROTEIN 5.6 G/DL (6.4-8.2); eGFR > 90 ML/MIN
--- NOTE | 2019-01-30 06:50 | NUR ---
Problems reprioritized. Patient report given, questions answered & plan of care reviewed with KENIA Griggs.
--- NOTE | 2019-01-30 06:57 | NUR ---
Patient in room [facility]. I have received report from eGna AQUINO and had the opportunity to ask questions and assume patient care.
[2019-01-30 08:00] VITALS: BP 155/66
[2019-01-30] MEDS: K and/or MAG REPLACEMENT MC SCH (08:00)
[2019-01-30] MEDS: normal saline 1000ml 1,000 ML IV SCH (08:16)
[2019-01-30] MEDS: pantoprazole 40 MG vial IV SCH (08:51)
[2019-01-30] MEDS: enoxaparin 30mg/0.3ml syringe SQ SCH (08:55)
[2019-01-30] MEDS: levoTHYROXINE sod inj. 100mcg/5 ml vial IV SCH (08:55)
--- NOTE | 2019-01-30 12:27 | NUR ---
PICC line removed. tip intact. Pt tolerated well. sterile dressing and Tegaderm in place.
--- NOTE | 2019-01-30 13:26 | NUR ---
Patient d/c'd home per Dr. Persaud orders. pt in stable conditions. Picc line and peripheral IV removed. Discharge orders and medication instructions given to family and patient. Patient left this hospital via private vehicle accompanied by family.
== END 2019-01-30 13:03 | disposition home health service (06) | DRG 335 ==
LOC: ER 18:13 → ED HOLD 21:08 → SUR 3N 21:20
PROVIDERS: ADMIT Hospitalist; ATTEND Internal Medicine
PROC: 0D9670Z Drainage of Stomach with Drainage Device, Via Natural or Artificial Opening (ICD-10-PCS; 2019-01-22)
PROC: 0DNU0ZZ Release Omentum, Open Approach (ICD-10-PCS; 2019-01-23)
PROC: 0WQF0ZZ Repair Abdominal Wall, Open Approach (ICD-10-PCS; principal; 2019-01-23 12:29)
PROC: 02HV33Z Insertion of Infusion Device into Superior Vena Cava, Percutaneous Approach (ICD-10-PCS; 2019-01-25)
PROC: B548ZZA Ultrasonography of Superior Vena Cava, Guidance (ICD-10-PCS; 2019-01-25)
DX: K43.0 Incisional hernia with obstruction, without gangrene (principal); E43 Unspecified severe protein-calorie malnutrition; K56.7 Ileus, unspecified; D62 Acute posthemorrhagic anemia; Z68.1 Body mass index [BMI] 19.9 or less, adult; K21.9 Gastro-esophageal reflux disease without esophagitis; E78.5 Hyperlipidemia, unspecified; E87.6 Hypokalemia; G43.909 Migraine, unspecified, not intractable, without status migrainosus; I10 Essential (primary) hypertension; K66.0 Peritoneal adhesions (postprocedural) (postinfection); Z79.82 Long term (current) use of aspirin; Z79.899 Other long term (current) drug therapy; Z82.49 Family history of ischemic heart disease and other diseases of the circulatory system; Z83.3 Family history of diabetes mellitus; Z90.710 Acquired absence of both cervix and uterus; Z88.5 Allergy status to narcotic agent; Z90.49 Acquired absence of other specified parts of digestive tract; Z79.890 Hormone replacement therapy
CPT/HCPCS: 36415; 36569; 74176; 76937; 80048; 80053; 81001; 82948; 83605; 83690; 83735; 84100; 84134; 84443; 84478; 85025; 87081; 87088; 96374; 96375; 96376; 97112; 97116; 97162; 97530; 99285; A4215; A4338; A4618; A7000; C9113; G0378; J0131; J0690; J0780; J1100; J1650; J1885; J2001; J2175; J2250; J2270; J2405; J3010; J3475; J3480; J3490; J7030; J7050; J7060; J7120

== ENCOUNTER 2020-08-25 06:07 | Day surgery (SDC) | payer MEDICARE, OTHER ==
[2020-08-18 11:22] LABS: CLARITY,URINE CLEAR (Clear); COLOR,URINE YELLOW (Yellow); GLUCOSE, URINE NEGATIVE (Neg); KETONES,URINE NEGATIVE (Neg); LEUKOCYTE ESTERASE ,URINE LARGE (Neg); NITRITES, URINE NEGATIVE (Neg); OCCULT BLOOD,URINE NEGATIVE (Neg); PH,URINE 6.5 (4.8-8.0); PROTEIN,URINE NEGATIVE (Neg); UROBILINOGEN,URINE 0.2 E.U/dL (0.2-1.0)
[2020-08-18 11:23] LABS: BASOPHILS # (AUTO) 0.1 X10'3 (0-0.2); BASOPHILS % (AUTO) 1.1 % (0-1); EOSINOPHILS # (AUTO) 0.1 X10'3 (0-0.9); EOSINOPHILS % (AUTO) 1.4 % (0-6); LYMPHOCYTES # (AUTO) 2.4 X10'3 (1.1-4.8); LYMPHOCYTES % (AUTO) 37.4 % (21-51); MEAN CORPUSCULAR HEMOGLOBIN 29.4 PG (27.0-31.0); MEAN CORPUSCULAR HGB CONC 32.9 g/dL (33.0-36.5); MEAN CORPUSCULAR VOLUME 89.2 FL (78-98); MEAN PLATELET VOLUME 8.9 FL (7.4-10.4); MONOCYTES # (AUTO) 0.7 X10'3 (0-0.9); MONOCYTES % (AUTO) 11.1 % (2-12); NEUTROPHILS # (AUTO) 3.2 X10'3 (1.8-7.7); PRE OP HEMATOCRIT 42.3 % (35.0-45.0); PRE OP HEMOGLOBIN 13.9 g/dL (12.0-16.0); PRE OP PLATELET COUNT 311 X10'3 (140-440); RED BLOOD COUNT 4.74 X10'6 (4.20-5.60); RED CELL DISTRIBUTION WIDTH 15.3 % (11.5-14.5)
[2020-08-18 11:28] LABS: UA COLLECTION TYPE NON-SPECIFIED
[2020-08-18 11:29] LABS: BACTERIA,URINE NONE SEEN /HPF (Neg); MUCUS STRANDS FEW /LPF (Neg); RBC,URINE NONE SEEN /HPF (0-2); SQUAMOUS EPITHELIAL CELL,UR FEW /LPF (FEW)
[2020-08-18 11:35] LABS: ALBUMIN 3.9 G/DL (3.4-5.0); ALKALINE PHOSPHATASE 75 IU/L (46-116); BLOOD UREA NITROGEN 12 MG/DL (7-18); BUN/CREATININE RATIO 20.7 (6.6-38.0); CALCIUM 9.3 MG/DL (8.5-10.1); CHLORIDE 103 MMOL/L (99-107); CREATININE 0.58 MG/DL (0.40-0.90); PRE OP ALT 15 U/L (30-65); PRE OP ANION GAP 11 (8-16); PRE OP AST 21 U/L (10-37); PRE OP BILIRUB, TOTAL 0.4 MG/DL (0.0-1.0); PRE OP GLUCOSE 87 MG/DL (70-104); PRE OP POTASSIUM 3.4 MMOL/L (3.4-5.1); PRE OP SODIUM 142 MMOL/L (135-145); TOTAL PROTEIN 7.7 G/DL (6.4-8.2); eGFR > 90 ML/MIN
[2020-08-25] VITALS (10 sets, daily range): BP systolic 103–145; BP diastolic 49–68
[~2020-08-25] VITALS: Ht 160 cm; Wt 53.5 kg
[~2020-08-25 06:07] MED LIST changes: +ACET-1008 PO; -ASPI-1071 PO; +ATOR40TA PO; +CHOL400T57 PO; +FAMO-128 PO; -HYDR-4383 PO; -HYDR25TA4 PO; +HYDR25TA5 PO; -NITR100C6 PO; -PANT-47 PO; -PROC5TAB56 PO; -ROSU40TA PO; -TEMA15CA5 PO; -[UNRECOGNIZED DRUG - MIXTURE]; +cefazolin/dext.iso 2gm/100ml IV ONE; +famotidine 20mg tablet PO ONE; +ringers solution, lacted 1,000 ML IV SCH
[2020-08-25] MEDS ORDERED: mupirocin 2% ointment 22GM ONE (07:00)
[2020-08-25] MEDS ORDERED: BUPIVAcaine/PF 2.5 mg/ml (0.25%) 30ml vial ONE (07:00)
[2020-08-25] MEDS ORDERED: bacitracin 15gm ointment TP ONE (07:05)
[2020-08-25] MEDS ORDERED: sevoflurane 250ml liquid IH ONE (08:09)
[2020-08-25] MEDS ORDERED: cloNIDine hcl/PF 100mcg/ml inj ONE (08:12)
[2020-08-25] MEDS ORDERED: midazolam 1 mg/ML 2ml injection ONE (08:13)
[2020-08-25] MEDS ORDERED: fentaNYL/PF 50MCG/1 ML 2ML syringe ONE (08:13)
[2020-08-25] MEDS ORDERED: LIDOcaine 2% (20mg/ml) 5ml vial ONE (08:53)
[2020-08-25] MEDS ORDERED: propofol inj 20 ML IV ONE (08:53)
[2020-08-25] MEDS ORDERED: 0.9 % SODIUM CHLORIDE 10 ML VIAL ONE ×2 (08:53)
[2020-08-25] MEDS ORDERED: ROPIVAcaine 0.5% (5mg/ml) 30ml vial ONE (08:53)
[2020-08-25] MEDS ORDERED: dexamethasone sod phosphate 4mg/ml inj. ONE (08:54)
[2020-08-25] MEDS ORDERED: ondansetron/PF 4mg/2ml inj ONE (08:54)
[2020-08-25] MEDS ORDERED: ondansetron/PF 4mg/2ml inj IV PRN (09:00)
[2020-08-25] MEDS ORDERED: ringers solution, lacted 1,000 ML IV SCH (09:00)
[2020-08-25] MEDS ORDERED: morphine 4 MG/ML inj SYRINge IV PRN (09:00)
[2020-08-25] MEDS ORDERED: acetaminophen 1,000mg/100ml IV 100 ML IV PRN (09:00)
[2020-08-25] MEDS ORDERED: labetalol 20mg/4ml (5mg/ml) syringe IV PRN (09:00)
[2020-08-25] MEDS ORDERED: meperidine/PF 25mg/ml syringe IV PRN ×3 (09:00)
[2020-08-25] MEDS ORDERED: morphine 2 MG/ML inj. syringe IV PRN (09:00)
[2020-08-25] MEDS ORDERED: hydrALAZINE 20mg/ml inj. IV PRN (09:00)
[2020-08-25] MEDS ORDERED: proCHLORperazine 10 MG/2 ml inj IV PRN (09:00)
--- NOTE | 2020-08-25 10:42 | NUR ---
Received from OR via [facility] IN STABLE CONDITION , accompanied by Anesthesiologist and REFRIGERATION ENGINEERING TEACHER report given by Uyen. Addendum: 08/25/20 at 1124 by Edyta Sena RN Amended: Links added.
--- NOTE | 2020-08-25 11:13 | NUR ---
DEMEROL GIVEN AT 1113 WAS 25MG NOT 12.5MG Addendum: 08/25/20 at 1151 by Edyta Sena RN Amended: Links added.
--- NOTE | 2020-08-25 12:52 | NUR ---
PATIENT DISCHARGED FROM PACU AFTER WRITTEN AND VERBAL DISCHARGE INSTRUCTIONS GIVEN. PATIENT AND GAVE VERBAL UNDERSTANDING OF INSTRUCTIONS GIVEN. PATIENT LEFT FACILITY VIA WHEELCHAIR WITH RN. Addendum: 08/25/20 at 1259 by Edyta Sena RN Amended: Links added.
== END 2020-08-25 12:52 | disposition home or self-care (01) ==
LOC: PAS 06:07
PROVIDERS: ATTEND Podiatrist Foot & Ankle Surgery
DX: M25.371 Other instability, right ankle (principal); M65.871 Other synovitis and tenosynovitis, right ankle and foot; M72.2 Plantar fascial fibromatosis; G89.18 Other acute postprocedural pain; K21.9 Gastro-esophageal reflux disease without esophagitis; Z79.899 Other long term (current) drug therapy; M17.12 Unilateral primary osteoarthritis, left knee; M18.0 Bilateral primary osteoarthritis of first carpometacarpal joints; Z82.3 Family history of stroke; Z83.3 Family history of diabetes mellitus; Z82.49 Family history of ischemic heart disease and other diseases of the circulatory system
CPT/HCPCS: 27696; 28060; 28740; 29895; 36415; 64445; 64447; 73620; 76000; 76942; 80053; 81001; 82948; 85025; 87088; 93005; A6222; C1713; J0131; J0735; J1100; J2001; J2175; J2250; J2405; J2704; J3010; J3490; A4215; A4618; A6449; A7000; J2795; J7120

== ENCOUNTER 2021-10-24 13:28 | Emergency (ER) | payer MEDICARE, OTHER ==
[~2021-10-24] VITALS: Ht 160 cm; Wt 55.9 kg
[~2021-10-24 13:28] MED LIST changes: -cefazolin/dext.iso 2gm/100ml IV ONE; -famotidine 20mg tablet PO ONE; -ringers solution, lacted 1,000 ML IV SCH
[2021-10-24 13:29] VITALS: BP 169/84
[2021-10-24] MEDS ORDERED: HYDROcodone/acetaminophen 5mg/325mg tablet PO ONE (15:35)
[2021-10-24] MEDS ORDERED: ondansetron 4mg rapidly disintigrating tab PO ONE (16:10)
== END 2021-10-24 17:36 | disposition home or self-care (01) ==
LOC: ER 13:28
DX: J90 Pleural effusion, not elsewhere classified (principal); I10 Essential (primary) hypertension; Z88.5 Allergy status to narcotic agent; Z98.890 Other specified postprocedural states; Z90.49 Acquired absence of other specified parts of digestive tract; Z90.710 Acquired absence of both cervix and uterus
CPT/HCPCS: 71101; 93005; 99283

== ENCOUNTER 2023-05-11 14:28 | Inpatient (IN) | payer MEDICARE, OTHER ==
[~2023-05-11] VITALS: Ht 160 cm; Wt 57.3 kg
[2023-05-11 15:17] LABS: BILIRUBIN,URINE NEGATIVE (Neg); CLARITY,URINE CLOUDY (Clear); COLOR,URINE YELLOW (Yellow); GLUCOSE, URINE NEGATIVE (Neg); KETONES,URINE 40 mg/dl (Neg); LEUKOCYTE ESTERASE ,URINE NEGATIVE (Neg); NITRITES, URINE POSITIVE (Neg); OCCULT BLOOD,URINE NEGATIVE (Neg); PROTEIN,URINE TRACE mg/dl (Neg); UROBILINOGEN,URINE 0.2 E.U/dL (0.2-1.0)
[2023-05-11 15:22] LABS: UA COLLECTION TYPE CLN CATCH MIDSTREAM
[2023-05-11 15:23] LABS: BACTERIA,URINE 4+ /HPF (Neg); HYALINE CASTS 0-3 /LPF (NEGATIVE); MUCUS STRANDS NONE SEEN /LPF (Neg); RBC,URINE 0-2 /HPF (0-2); SQUAMOUS EPITHELIAL CELL,UR FEW /LPF (FEW); WBC,URINE 20-30 /HPF (0-4)
[2023-05-11 15:52] LABS: BASOPHILS # (AUTO) 0.1 X10'3 (0-0.2); BASOPHILS % (AUTO) 0.6 % (0-1); EOSINOPHILS % (AUTO) 0.2 % (0-6); HEMOGLOBIN 10.3 g/dl (12.0-16.0); LYMPHOCYTES # (AUTO) 1.8 X10'3 (1.1-4.8); LYMPHOCYTES % (AUTO) 21.2 % (21-51); MEAN CORPUSCULAR HEMOGLOBIN 23.4 PG (27.0-31.0); MEAN CORPUSCULAR HGB CONC 31.2 g/dL (33.0-36.5); MEAN CORPUSCULAR VOLUME 74.8 FL (78-98); MEAN PLATELET VOLUME 8.2 FL (7.4-10.4); MONOCYTES # (AUTO) 0.6 X10'3 (0-0.9); MONOCYTES % (AUTO) 7.1 % (2-12); NEUTROPHILS % (AUTO) 70.9 % (42-75); PLATELET COUNT 451 X10'3 (140-440); RED BLOOD COUNT 4.41 X10'6 (4.20-5.60); WHITE BLOOD COUNT 8.4 X10'3 (4.5-11.0)
[2023-05-11 16:05] LABS: ALANINE AMINOTRANSFERASE 19 U/L (12-78); ALBUMIN 4.1 G/DL (3.4-5.0); ALBUMIN/GLOBULIN RATIO 1.1 (1.1-1.5); ALKALINE PHOSPHATASE 81 IU/L (46-116); ANION GAP 11 (8-16); ASPARTATE AMINO TRANSFERASE 15 U/L (10-37); BILIRUBIN,TOTAL 0.4 MG/DL (0.1-1.0); BLOOD UREA NITROGEN 13 MG/DL (7-18); BUN/CREATININE RATIO 18.1 (10.0-20.0); CALCIUM 9.2 MG/DL (8.5-10.1); CHLORIDE 104 MMOL/L (99-107); CREATININE 0.72 MG/DL (0.40-0.90); GLUCOSE 104 MG/DL (70-104); LIPASE 33 U/L (16-77); POTASSIUM 3.8 MMOL/L (3.5-5.1); SODIUM 141 MMOL/L (135-145); TOTAL CARBON DIOXIDE 26.3 MMOL/L (24-32); eCRCL 54 ML/MIN; eGFR 79 ML/MIN
[2023-05-11 16:15] LABS: PROTHROMBIN TIME 10.5 SECONDS (9.0-12.0)
[2023-05-11] MEDS ORDERED: pantoprazole 40mg IV 80 MG in normal saline 100ml IV soln 100 ML IV ONE (18:20)
[2023-05-11] MEDS: CefTRIAXone/D5W-Rocephin 1gm 50 ML IV ONE (19:21)
[2023-05-11] MEDS: ondansetron/PF 4mg/2ml inj IV ONE (19:23)
[2023-05-11] MEDS: normal saline 1000ML IV soln IVB ONE (19:24)
[2023-05-11] MEDS: pantoprazole 40MG/NS 100ML BAG 100 ML IV ONE (19:24)
[2023-05-11] MEDS: pantoprazole 40 MG vial IV ONE (19:24)
[2023-05-11] MEDS ORDERED: acetaminophen 325mg tablet PO PRN (20:25)
[2023-05-11] MEDS ORDERED: metoclopramide 5 mg/ml inj IV PRN (20:25)
[2023-05-11] MEDS ORDERED: magnesium 4gm in 100ml NS 100 ML IV PRN (20:25)
[2023-05-11] MEDS ORDERED: mag hydrox/Alum hydrox/simeth 30ml oral suspension PO PRN (20:25)
[2023-05-11] MEDS ORDERED: magnesium Cl slow-release 64mg tablet PO PRN (20:25)
[2023-05-11] MEDS ORDERED: magnesium hydroxide 30ml (MOM) UD suspension PO PRN (20:25)
[2023-05-11] MEDS ORDERED: potassium Cl 40MEQ/1/2NS 520ml 520 ML IV PRN (20:25)
[2023-05-11] MEDS ORDERED: magnesium 2GM in 50ml NS 50 ML IV PRN (20:25)
[2023-05-11] MEDS ORDERED: potassium Cl 20 mEq SR tablet PO PRN ×2 (20:25)
[2023-05-11 21:14] LABS: BASOPHILS # (AUTO) 0.1 X10'3 (0-0.2); BASOPHILS % (AUTO) 0.7 % (0-1); EOSINOPHILS # (AUTO) 0.1 X10'3 (0-0.9); EOSINOPHILS % (AUTO) 0.6 % (0-6); HEMATOCRIT 29.6 % (35.0-45.0); HEMOGLOBIN 9.2 g/dl (12.0-16.0); LYMPHOCYTES # (AUTO) 2.2 X10'3 (1.1-4.8); LYMPHOCYTES % (AUTO) 27.4 % (21-51); MEAN CORPUSCULAR VOLUME 74.4 FL (78-98); MEAN PLATELET VOLUME 8.7 FL (7.4-10.4); MONOCYTES # (AUTO) 0.8 X10'3 (0-0.9); MONOCYTES % (AUTO) 9.6 % (2-12); NEUTROPHILS # (AUTO) 4.9 X10'3 (1.8-7.7); NEUTROPHILS % (AUTO) 61.7 % (42-75); PLATELET COUNT 392 X10'3 (140-440); RED BLOOD COUNT 3.97 X10'6 (4.20-5.60); RED CELL DISTRIBUTION WIDTH 18.2 % (11.5-14.5)
[2023-05-11 21:38] LABS: MAGNESIUM 2.1 MG/DL (1.5-2.4); POTASSIUM 3.7 MMOL/L (3.5-5.1)
[2023-05-12] VITALS (11 sets, daily range): BP systolic 93–145; BP diastolic 48–71; PULSE 53–79; RESP 15–20; TEMP 97.7–98.4; O2SAT 92–100
[2023-05-12] MEDS: ketorolac tromethamine 15mg/ml inj. IV ONE (00:30)
[2023-05-12] MEDS ORDERED: acetaminophen 325mg tablet PO PRN (01:30)
[2023-05-12] MEDS: K and/or MAG REPLACEMENT MC SCH (08:00)
[2023-05-12] MEDS: docusate sod 100mg capsule PO SCH (08:00)
[2023-05-12 09:14] LABS: BASOPHILS % (AUTO) 0.7 % (0-1); EOSINOPHILS # (AUTO) 0.1 X10'3 (0-0.9); EOSINOPHILS % (AUTO) 1.2 % (0-6); HEMATOCRIT 28.3 % (35.0-45.0); LYMPHOCYTES # (AUTO) 2.3 X10'3 (1.1-4.8); LYMPHOCYTES % (AUTO) 36.9 % (21-51); MEAN CORPUSCULAR HEMOGLOBIN 23.7 PG (27.0-31.0); MEAN CORPUSCULAR HGB CONC 31.9 g/dL (33.0-36.5); MEAN CORPUSCULAR VOLUME 74.4 FL (78-98); MEAN PLATELET VOLUME 8.4 FL (7.4-10.4); MONOCYTES # (AUTO) 0.7 X10'3 (0-0.9); MONOCYTES % (AUTO) 11.7 % (2-12); NEUTROPHILS # (AUTO) 3.1 X10'3 (1.8-7.7); NEUTROPHILS % (AUTO) 49.5 % (42-75); PLATELET COUNT 383 X10'3 (140-440); RED CELL DISTRIBUTION WIDTH 17.6 % (11.5-14.5); WHITE BLOOD COUNT 6.2 X10'3 (4.5-11.0)
[2023-05-12 09:33] LABS: ALANINE AMINOTRANSFERASE 16 U/L (12-78); ALBUMIN 3.2 G/DL (3.4-5.0); ALBUMIN/GLOBULIN RATIO 1.1 (1.1-1.5); ALKALINE PHOSPHATASE 68 IU/L (46-116); ANION GAP 9 (8-16); ASPARTATE AMINO TRANSFERASE 16 U/L (10-37); BILIRUBIN,TOTAL 0.4 MG/DL (0.1-1.0); BLOOD UREA NITROGEN 12 MG/DL (7-18); CALCIUM 8.1 MG/DL (8.5-10.1); CHLORIDE 110 MMOL/L (99-107); CREATININE 0.63 MG/DL (0.40-0.90); GLUCOSE 86 MG/DL (70-104); MAGNESIUM 2.1 MG/DL (1.5-2.4); POTASSIUM 3.6 MMOL/L (3.5-5.1); SODIUM 144 MMOL/L (135-145); TOTAL CARBON DIOXIDE 24.8 MMOL/L (24-32); TOTAL PROTEIN 6.2 G/DL (6.4-8.2); eCRCL 62 ML/MIN; eGFR > 90 ML/MIN
[2023-05-12] MEDS: levoFLOXACIN-Levaquin 750MG/D5 150 ML IV SCH (11:39)
[2023-05-12] MEDS: pantoprazole 40MG/NS 100ML BAG 100 ML IV SCH ×2 (11:39→19:01)
[2023-05-12 12:05] LABS: BASOPHILS % (AUTO) 0.8 % (0-1); EOSINOPHILS # (AUTO) 0.1 X10'3 (0-0.9); EOSINOPHILS % (AUTO) 1.2 % (0-6); HEMATOCRIT 27.5 % (35.0-45.0); HEMOGLOBIN 8.7 g/dl (12.0-16.0); LYMPHOCYTES # (AUTO) 1.8 X10'3 (1.1-4.8); MEAN CORPUSCULAR HEMOGLOBIN 23.3 PG (27.0-31.0); MEAN CORPUSCULAR HGB CONC 31.5 g/dL (33.0-36.5); MEAN CORPUSCULAR VOLUME 73.9 FL (78-98); MEAN PLATELET VOLUME 8.5 FL (7.4-10.4); MONOCYTES # (AUTO) 0.6 X10'3 (0-0.9); MONOCYTES % (AUTO) 10.7 % (2-12); NEUTROPHILS % (AUTO) 55.3 % (42-75); PLATELET COUNT 375 X10'3 (140-440); RED BLOOD COUNT 3.72 X10'6 (4.20-5.60); RED CELL DISTRIBUTION WIDTH 17.8 % (11.5-14.5); WHITE BLOOD COUNT 5.5 X10'3 (4.5-11.0)
[2023-05-12] MEDS ORDERED: PANT40TA54 PO (12:31)
[2023-05-12] MEDS ORDERED: ERGO500056 PO (12:31)
[2023-05-12] MEDS ORDERED: TRAM50TA2 PO (12:31)
[2023-05-12 13:32] LABS: FERRITIN 9 NG/ML (8-252)
[2023-05-12] MEDS ORDERED: MIDAZolam 1 MG/ML 5ML VIAL ONE (13:46)
[2023-05-12] MEDS ORDERED: fentaNYL/PF 50MCG/1 ML 2ML syringe ONE (13:46)
[2023-05-12] MEDS: ondansetron/PF 4mg/2ml inj IV PRN (19:06)
[2023-05-12] MEDS: morphine 2 MG/ML inj. syringe IV PRN (19:11)
[2023-05-12] MEDS: atorvastatin 20mg tablet PO SCH (20:05)
[2023-05-12 21:26] LABS: BASOPHILS % (AUTO) 0.5 % (0-1); EOSINOPHILS # (AUTO) 0.1 X10'3 (0-0.9); HEMATOCRIT 31.2 % (35.0-45.0); HEMOGLOBIN 9.5 g/dl (12.0-16.0); LYMPHOCYTES # (AUTO) 2.3 X10'3 (1.1-4.8); LYMPHOCYTES % (AUTO) 30.8 % (21-51); MEAN CORPUSCULAR HEMOGLOBIN 23.1 PG (27.0-31.0); MEAN CORPUSCULAR HGB CONC 30.6 g/dL (33.0-36.5); MEAN CORPUSCULAR VOLUME 75.3 FL (78-98); MONOCYTES # (AUTO) 0.7 X10'3 (0-0.9); NEUTROPHILS # (AUTO) 4.3 X10'3 (1.8-7.7); NEUTROPHILS % (AUTO) 57.7 % (42-75); PLATELET COUNT 398 X10'3 (140-440); RED BLOOD COUNT 4.14 X10'6 (4.20-5.60); RED CELL DISTRIBUTION WIDTH 17.9 % (11.5-14.5); WHITE BLOOD COUNT 7.5 X10'3 (4.5-11.0)
[2023-05-12] MEDS: Melatonin 3mg tablet PO PRN (23:58)
[2023-05-13 06:00] VITALS: BP 139/51; PULSE 61; RESP 15; TEMP 98.6; O2SAT 98
[2023-05-13 06:51] LABS: ALANINE AMINOTRANSFERASE 12 U/L (12-78); ALBUMIN 2.9 G/DL (3.4-5.0); ALBUMIN/GLOBULIN RATIO 0.9 (1.1-1.5); ALKALINE PHOSPHATASE 60 IU/L (46-116); ANION GAP 10 (8-16); ASPARTATE AMINO TRANSFERASE 17 U/L (10-37); BILIRUBIN,TOTAL 0.4 MG/DL (0.1-1.0); BLOOD UREA NITROGEN 9 MG/DL (7-18); BUN/CREATININE RATIO 13.6 (10.0-20.0); CALCIUM 8.6 MG/DL (8.5-10.1); CHLORIDE 110 MMOL/L (99-107); CHOL/HDL RATIO 3.8 (0.00-4.99); CHOLESTEROL 175 MG/DL (0-200); CREATININE 0.66 MG/DL (0.40-0.90); FREE T4 (FREE THYROXINE) 1.01 NG/DL (0.73-1.40); GLUCOSE 85 MG/DL (70-104); HDL CHOLESTEROL 46 MG/DL (35-60); LDL CHOLESTEROL 115 MG/DL (50-100); MAGNESIUM 2.1 MG/DL (1.5-2.4); SODIUM 142 MMOL/L (135-145); THYROID STIMULATING HORMONE 1.31 ulU/ml (0.34-4.50); TOTAL CARBON DIOXIDE 21.8 MMOL/L (24-32); TRIGLYCERIDES 59 MG/DL (20-135); eCRCL 59 ML/MIN; eGFR 87 ML/MIN
[2023-05-13] MEDS: HYDROchlorothiazide 25mg tablet PO SCH (07:51)
[2023-05-13] MEDS: levoTHYROXINE 75mcg tablet PO SCH (07:51)
[2023-05-13] MEDS: cholecalciferol (vitamin D3) 1,000 unit (25mcg) tablet PO SCH (07:51)
[2023-05-13] MEDS: CefTRIAXone/D5W-Rocephin 1gm 50 ML IV SCH (07:51)
[2023-05-13 07:52] LABS: BASOPHILS # (AUTO) 0.1 X10'3 (0-0.2); BASOPHILS % (AUTO) 0.8 % (0-1); EOSINOPHILS # (AUTO) 0.1 X10'3 (0-0.9); EOSINOPHILS % (AUTO) 0.9 % (0-6); HEMOGLOBIN 8.7 g/dl (12.0-16.0); LYMPHOCYTES # (AUTO) 1.7 X10'3 (1.1-4.8); LYMPHOCYTES % (AUTO) 24.1 % (21-51); MEAN CORPUSCULAR HEMOGLOBIN 23.2 PG (27.0-31.0); MEAN CORPUSCULAR HGB CONC 31.1 g/dL (33.0-36.5); MEAN CORPUSCULAR VOLUME 74.6 FL (78-98); MEAN PLATELET VOLUME 8.5 FL (7.4-10.4); MONOCYTES # (AUTO) 0.7 X10'3 (0-0.9); MONOCYTES % (AUTO) 9.8 % (2-12); NEUTROPHILS # (AUTO) 4.5 X10'3 (1.8-7.7); NEUTROPHILS % (AUTO) 64.4 % (42-75); PLATELET COUNT 346 X10'3 (140-440); RED BLOOD COUNT 3.75 X10'6 (4.20-5.60); RED CELL DISTRIBUTION WIDTH 17.7 % (11.5-14.5)
[2023-05-13 09:53] LABS: EOSINOPHILS # (AUTO) 0.1 X10'3 (0-0.9); HEMATOCRIT 27.9 % (35.0-45.0); HEMOGLOBIN 8.8 g/dl (12.0-16.0); MEAN CORPUSCULAR HEMOGLOBIN 23.8 PG (27.0-31.0); MEAN CORPUSCULAR HGB CONC 31.6 g/dL (33.0-36.5); MEAN CORPUSCULAR VOLUME 75.3 FL (78-98); MEAN PLATELET VOLUME 8.4 FL (7.4-10.4); MONOCYTES # (AUTO) 0.6 X10'3 (0-0.9); NEUTROPHILS # (AUTO) 4.5 X10'3 (1.8-7.7); PLATELET COUNT 355 X10'3 (140-440); RED BLOOD COUNT 3.71 X10'6 (4.20-5.60); RED CELL DISTRIBUTION WIDTH 17.7 % (11.5-14.5)
[2023-05-13 10:07] LABS: BASOPHILS % (AUTO) 0.7 % (0-1); LYMPHOCYTES # (AUTO) 1.5 X10'3 (1.1-4.8); LYMPHOCYTES % (AUTO) 22.8 % (21-51); MONOCYTES % (AUTO) 8.8 % (2-12); NEUTROPHILS % (AUTO) 66.7 % (42-75); WHITE BLOOD COUNT 6.7 X10'3 (4.5-11.0)
[2023-05-13] MEDS ORDERED: SULF1TAB49 PO (11:14)
== END 2023-05-13 10:30 | disposition home or self-care (01) | DRG 378 ==
LOC: ER 14:28 → ED HOLD 20:30 → ORTHO 4S 05-12 07:25
PROVIDERS: ADMIT Surgery; ATTEND Internal Medicine
PROC: 0DB78ZX Excision of Stomach, Pylorus, Via Natural or Artificial Opening Endoscopic, Diagnostic (ICD-10-PCS; principal; 2023-05-12)
DX: K92.2 Gastrointestinal hemorrhage, unspecified (principal); N39.0 Urinary tract infection, site not specified; D50.0 Iron deficiency anemia secondary to blood loss (chronic); K44.9 Diaphragmatic hernia without obstruction or gangrene; K21.9 Gastro-esophageal reflux disease without esophagitis; I10 Essential (primary) hypertension; E03.9 Hypothyroidism, unspecified; I20.89 Other forms of angina pectoris; B96.20 Unspecified Escherichia coli [E. coli] as the cause of diseases classified elsewhere; E78.5 Hyperlipidemia, unspecified; Z82.49 Family history of ischemic heart disease and other diseases of the circulatory system; Z83.3 Family history of diabetes mellitus; Z90.49 Acquired absence of other specified parts of digestive tract; Z87.11 Personal history of peptic ulcer disease; Z90.710 Acquired absence of both cervix and uterus; Z88.6 Allergy status to analgesic agent; Z88.8 Allergy status to other drugs, medicaments and biological substances; Z79.899 Other long term (current) drug therapy; Z87.440 Personal history of urinary (tract) infections
CPT/HCPCS: 36415; 43239; 71045; 80053; 80061; 81001; 82728; 83540; 83605; 83690; 83735; 84132; 84439; 84443; 84466; 84484; 85025; 85610; 86885; 86900; 86901; 87040; 87077; 87081; 87088; 87186; 88305; 88342; 93005; 93306; 96365; 96368; 96375; 99152; 99285; A4620; C9113; G0378; J0696; J1885; J1956; J2250; J2270; J2405; J3010; J7030

== ENCOUNTER → 2023-07-25 | Outpatient (CLI) | payer MEDICARE, OTHER ==
[~2023-07-25] MED LIST changes: +ERGO500056 PO; +PANT40TA54 PO; +TRAM50TA2 PO; +iohexol 300mg/ml 100ml inj. ONE
[2023-07-25 11:13] LABS: ALANINE AMINOTRANSFERASE 19 U/L (12-78); ALBUMIN 3.7 G/DL (3.4-5.0); ALBUMIN/GLOBULIN RATIO 1.1 (1.1-1.5); ALKALINE PHOSPHATASE 75 IU/L (46-116); ANION GAP 4 (8-16); ASPARTATE AMINO TRANSFERASE 12 U/L (10-37); BILIRUBIN,TOTAL 0.3 MG/DL (0.1-1.0); BLOOD UREA NITROGEN 5 MG/DL (7-18); BUN/CREATININE RATIO 9.1 (10.0-20.0); CALCIUM 8.8 MG/DL (8.5-10.1); CHLORIDE 104 MMOL/L (99-107); CREATININE 0.55 MG/DL (0.40-0.90); GLUCOSE 98 MG/DL (70-104); POTASSIUM 4.2 MMOL/L (3.5-5.1); SODIUM 136 MMOL/L (135-145); TOTAL CARBON DIOXIDE 28.1 MMOL/L (24-32); TOTAL PROTEIN 7.2 G/DL (6.4-8.2); eGFR > 90 ML/MIN
== END | disposition home or self-care (01) ==
LOC: RAD 08:51
PROVIDERS: ATTEND Surgery
DX: I25.10 Atherosclerotic heart disease of native coronary artery without angina pectoris (principal); K44.9 Diaphragmatic hernia without obstruction or gangrene; K92.0 Hematemesis; I70.0 Atherosclerosis of aorta; Z90.49 Acquired absence of other specified parts of digestive tract
CPT/HCPCS: 36415; 71260; 74160; 80053; J3490; Q9967

== ENCOUNTER 2023-09-03 16:47 | Emergency (ER) | payer MEDICARE, OTHER ==
[~2023-09-03] VITALS: Ht 160 cm; Wt 57.0 kg
[~2023-09-03 16:47] MED LIST changes: -iohexol 300mg/ml 100ml inj. ONE
[2023-09-03 16:53] VITALS: TEMP 98.3
[2023-09-03 17:17] LABS: BILIRUBIN,URINE NEGATIVE (Neg); CLARITY,URINE SLIGHTLY CLOUDY (Clear); COLOR,URINE YELLOW (Yellow); GLUCOSE, URINE NEGATIVE (Neg); KETONES,URINE NEGATIVE (Neg); LEUKOCYTE ESTERASE ,URINE LARGE (Neg); NITRITES, URINE NEGATIVE (Neg); OCCULT BLOOD,URINE NEGATIVE (Neg); PH,URINE 6.5 (4.8-8.0); PROTEIN,URINE NEGATIVE (Neg); UROBILINOGEN,URINE 0.2 E.U/dL (0.2-1.0)
[2023-09-03 17:22] LABS: UA COLLECTION TYPE CLN CATCH MIDSTREAM
[2023-09-03 17:23] LABS: MUCUS STRANDS MANY /LPF (Neg); SQUAMOUS EPITHELIAL CELL,UR MODERATE /LPF (FEW)
[2023-09-03 17:24] LABS: BACTERIA,URINE 2+ /HPF (Neg); WBC,URINE TNTC /HPF (0-4)
[2023-09-03 17:24] LABS: BASOPHILS # (AUTO) 0.1 X10'3 (0-0.2); BASOPHILS % (AUTO) 1.1 % (0-1); EOSINOPHILS # (AUTO) 0.2 X10'3 (0-0.9); EOSINOPHILS % (AUTO) 2.5 % (0-6); HEMATOCRIT 33.6 % (35.0-45.0); LYMPHOCYTES # (AUTO) 2.9 X10'3 (1.1-4.8); LYMPHOCYTES % (AUTO) 29.5 % (21-51); MEAN CORPUSCULAR HEMOGLOBIN 28.2 PG (27.0-31.0); MEAN CORPUSCULAR HGB CONC 32.6 g/dL (33.0-36.5); MEAN CORPUSCULAR VOLUME 86.4 FL (78-98); MEAN PLATELET VOLUME 7.9 FL (7.4-10.4); MONOCYTES % (AUTO) 10.6 % (2-12); NEUTROPHILS # (AUTO) 5.5 X10'3 (1.8-7.7); NEUTROPHILS % (AUTO) 56.3 % (42-75); PLATELET COUNT 441 X10'3 (140-440); RED BLOOD COUNT 3.89 X10'6 (4.20-5.60); RED CELL DISTRIBUTION WIDTH 17.3 % (11.5-14.5); WHITE BLOOD COUNT 9.8 X10'3 (4.5-11.0)
[2023-09-03 17:25] LABS: AMORPHOUS URATES 2+; TRANSITIONAL EPI CELLS,URINE FEW /HPF
[2023-09-03 17:40] LABS: ALANINE AMINOTRANSFERASE 23 U/L (12-78); ALBUMIN 3.4 G/DL (3.4-5.0); ALBUMIN/GLOBULIN RATIO 0.9 (1.1-1.5); ALKALINE PHOSPHATASE 113 IU/L (46-116); ASPARTATE AMINO TRANSFERASE 14 U/L (10-37); BILIRUBIN,TOTAL 0.2 MG/DL (0.1-1.0); BLOOD UREA NITROGEN 12 MG/DL (7-18); BUN/CREATININE RATIO 17.6 (10.0-20.0); CREATININE 0.68 MG/DL (0.40-0.90); GLUCOSE 109 MG/DL (70-104); LIPASE 24 U/L (16-77); TOTAL CARBON DIOXIDE 28.8 MMOL/L (24-32); TOTAL PROTEIN 7.3 G/DL (6.4-8.2); eCRCL 57 ML/MIN; eGFR 84 ML/MIN
[2023-09-03 17:47] LABS: ANION GAP 8 (8-16); CHLORIDE 103 MMOL/L (99-107); SODIUM 140 MMOL/L (135-145)
[2023-09-03] MEDS ORDERED: iohexol 300mg/ml 100ml inj. ONE (19:19)
[2023-09-03] MEDS: ondansetron/PF 4mg/2ml inj IV ONE ×2 (19:52→21:57)
[2023-09-03] MEDS: CefTRIAXone/D5W-Rocephin 1gm 50 ML IV SCH (19:59)
[2023-09-03] MEDS: HYDROmorphone/PF 0.2 MG/ML SYRINGE IV ONE ×2 (19:59→21:57)
[2023-09-03] MEDS: normal saline 1000ML IV soln IVB ONE (20:00)
[2023-09-03] MEDS ORDERED: CEFP100T7 PO (21:22)
[2023-09-03 22:26] VITALS: BP 153/56; PULSE 64; RESP 18; O2SAT 100
== END 2023-09-03 22:20 | disposition home or self-care (01) ==
LOC: ER 16:48
DX: N39.0 Urinary tract infection, site not specified (principal); K52.89 Other specified noninfective gastroenteritis and colitis; R11.0 Nausea; I10 Essential (primary) hypertension; K21.9 Gastro-esophageal reflux disease without esophagitis; D64.9 Anemia, unspecified; Z98.890 Other specified postprocedural states; Z90.49 Acquired absence of other specified parts of digestive tract; Z90.710 Acquired absence of both cervix and uterus; Z88.1 Allergy status to other antibiotic agents; Z88.8 Allergy status to other drugs, medicaments and biological substances; Z79.899 Other long term (current) drug therapy; Z79.2 Long term (current) use of antibiotics
CPT/HCPCS: 36415; 74177; 80053; 81001; 83605; 83690; 85025; 87040; 87088; 96365; 96375; 96376; 99285; J0696; J1170; J2405; J7030; J7040; Q9967